=== PATIENT | female | born 1980 | race Two or more races ===

== ENCOUNTER 2024-07-31 19:21 | Emergency (ER) | payer OTHER ==
[~2024-07-31] VITALS: Ht 154.9 cm; Wt 70.3 kg
[2024-07-31] MEDS ORDERED: BICT1TAB PO (20:16)
[2024-07-31] MEDS ORDERED: KETOROLAC TROMETHAMINE 15 MG INJ IVP ONE (20:45)
[2024-07-31] MEDS: FAMOTIDINE. 20 MG/2 ML VIAL IV ONE (20:45)
[2024-07-31] MEDS: IV NS 1000 ML 1,000 ML IV ONE (20:45)
[2024-07-31] MEDS: METOCLOPRAMIDE HCL 10 MG/2 ML VIAL IV ONE (20:45)
[2024-07-31 20:58] LABS: BASOPHILS # (AUTO) 0.1 K/UL (0.0-0.2); BASOPHILS % (AUTO) 0.9 % (0.0-2.0); EOSINOPHILS # (AUTO) 0.1 K/uL (0.0-0.7); HEMATOCRIT 43.2 % (31.2-41.9); HEMOGLOBIN 14.9 g/dL (10.9-14.3); LYMPHOCYTES # (AUTO) 3.2 K/uL (0.8-4.8); LYMPHOCYTES % (AUTO) 28.6 % (20.5-51.5); MEAN CORPUSCULAR HEMOGLOBIN 32.3 uug (24.7-32.8); MEAN CORPUSCULAR HGB CONC 34 g/dL (32.3-35.6); MEAN CORPUSCULAR VOLUME 93.6 fL (75.5-95.3); MONOCYTES # (AUTO) 0.7 K/uL (0.1-1.30); MONOCYTES % (AUTO) 6.5 % (0.0-11.0); NEUTROPHILS # (AUTO) 7.1 K/uL (1.8-8.9); PLATELET COUNT (AUTO) 412 K/uL (179-408); RED BLOOD CELL COUNT(AUTO) 4.61 MIL/uL (3.63-4.92); RED CELL DISTRIBUTION WIDTH 12.7 % (12.3-17.7); WHITE BLOOD COUNT (AUTO) 11.3 K/uL (3.8-11.8)
[2024-07-31 21:06] LABS: CREATININE 0.9 mg/dL (0.6-1.3); POTASSIUM 3.6 mmol/L (3.5-5.1)
[2024-07-31 21:12] LABS: ALBUMIN 3.6 g/dL (3.4-5.0); BILIRUBIN,TOTAL 0.6 mg/dL (0.2-1.0); MAGNESIUM 2.3 mg/dL (1.8-2.4); TOTAL PROTEIN, SERUM 7.8 g/dL (6.4-8.2)
[2024-07-31] MEDS ORDERED: METOCLOPRAMIDE HCL 10 MG/2 ML VIAL ONE (21:24)
[2024-07-31] MEDS ORDERED: FAMOTIDINE. 20 MG/2 ML VIAL IV ONE (21:25)
[2024-07-31] MEDS ORDERED: diphenhydrAMINE 50 MG/1 ML VIAL ONE (22:03)
[2024-07-31] MEDS: diphenhydrAMINE 50 MG/1 ML VIAL IV ONE (22:08)
[2024-07-31 22:24] LABS: *BILIRUBIN,URIN 1+ (NEGATIVE); *BLOOD, URINE 3+ (NEGATIVE); *CLARITY,URINE CLEAR (CLEAR); *COLOR,URINE RED (YELLOW); *KETONES,URINE 1+ (NEGATIVE); *PROTEIN,URINE 2+ (NEGATIVE); *UROBILINOGEN,URINE 0.2 E.U./dl (NORMAL); LEUKOCYTE ESTERASE ,URINE 1+ (NEGATIVE); NITRITE, URINE NEGATIVE (NEGATIVE); PH,URINE 6.5 (5.0-8.0); UGLUCOSE NEGATIVE (NEGATIVE)
[2024-07-31 22:30] LABS: *URINE HCG, QUAL NEGATIVE (NEGATIVE)
[2024-07-31 22:50] LABS: BACTERIA,URINE MODERATE /HPF (NONE SEEN); MUCUS,URINE MANY /LPF (0-FEW); RBC,URINE TNTC /HPF (0-3); SQUAMOUS EPITHELIAL CELL,UR MODERATE /HPF (NONE SEEN)
[2024-08-01] MEDS ORDERED: ONDA4TAB11 PO (00:13)
[2024-08-01] MEDS ORDERED: CEPH500C2 PO (00:13)
[2024-08-01] MEDS ORDERED: CEphaleXIN 500 MG CAPSULE ONE (00:17)
[2024-08-01] MEDS: CEphaleXIN 500 MG CAPSULE PO ONE (00:28)
[2024-08-01 00:30] VITALS: BP 120/81; TEMP 98.2; O2SAT 100
== END 2024-08-01 00:31 | disposition home or self-care (01) ==
LOC: ER 19:38
DX: N39.0 Urinary tract infection, site not specified (principal); R11.2 Nausea with vomiting, unspecified; R42 Dizziness and giddiness; R51.9 Headache, unspecified
CPT/HCPCS: 99285; 96374; 70450; 96375; 96361; 80053; 81001; 84703; 83735; 85025; 87086; 36415; J1200; J3490; J2765; J7040